=== PATIENT | male | born 1980 | race Caucasian/White ===

== ENCOUNTER 2022-08-04 16:27 | Emergency (ER) | payer OTHER, SELFPAY ==
[2022-08-04 16:35] VITALS: BP 156/98; PULSE 96; RESP 18; TEMP 36.6; O2SAT 99
--- NOTE | 2022-08-04 16:39 | DI.RAD.S_ITS ---
PROCEDURE: XR HAND LT MIN 3V INDICATIONS: fall TECHNIQUE: For views of the hand(s) acquired. COMPARISON: None. FINDINGS: Bones: Oblique fracture through the 3rd middle phalanx. Nondisplaced fracture through the ulnar base of the 4th middle phalanx. Carpal bones are normally aligned. No suspicious bony lesions. Soft tissues: No suspicious soft tissue calcifications. Soft tissue edema of the 3rd and 4th digits. IMPRESSION: 1. Oblique fracture of the 3rd middle phalanx. 2. Intra-articular fracture at the base of the 4th middle phalanx. Dictated by: Patrick Nicholson M.D. on 08/04/2022 at 16:37 Approved by: Patrick Nicholson M.D. on 08/04/2022 at 16:40
--- NOTE | 2022-08-04 18:09 | ED_ITS ---
HPI - Extremity Injury (Upper) General Chief Complaint: Extremity Injury, Upper Stated Complaint: Left Hand Injury Time Seen by Provider: 08/04/22 18:05 Source: patient Mode of arrival: Ambulatory History of Present Illness HPI narrative: 42-year-old male nonsmoker with noncontributory medical history presents with a chief complaint of pain and swelling to the 3rd 4th and 5th fingers of his left hand. Patient was on a rope swing and his fingers got caught up in the rope he now has pain in the fingers only but denies any hand wrist or elbow injury. He denies any numbness, tingling or weakness. He denies any other injuries such as head, neck or back. He has increased pain with range of motion and palpation. Related Data Home Medications Medication Instructions Recorded Confirmed No Known Home Medications 08/04/22 08/04/22 Allergies Allergy/AdvReac Type Severity Reaction Status Date / Time No Known Drug Allergies Allergy Unverified 08/04/22 16:22 Review of Systems Review of Systems Narrative: GENERAL: Denies chills, fatigue, malaise, fever, sweats. HEENT: Denies sinus pain, ear pain, sore throat, difficulty swallowing, dizziness. RESPIRATORY: Denies dyspnea, cough, wheezing, hemoptysis, sputum. CARDIOVASCULAR: Denies chest pain, palpitations, orthopnea, edema, GASTROINTESTINAL: Denies nausea, vomiting, abdominal pain, diarrhea, constipation, melena. : Denies dysuria, frequency, incontinence, hematuria, urinary retention. MUSCULOSKELETAL: See HPI SKIN: Denies rash, skin lesions, or other NEUROLOGIC: Denies weakness, headache, numbness, change in speech, confusion, seizures, incoordination. PSYCHIATRIC: No concerning psychosocial issues. 12 point review of systems is negative except for those stated above Exam Narrative Exam Narrative: GEN: AOx3 and in mild distress EYES: Pupils are equal, round, and reactive to light and accommodation. Extraoccular muscles are intact bilaterally. There is no subconjunctival hemorrhage or exudate. CHEST: Lungs are clear to auscultation bilaterally and free of wheezes, rales, or rhonchi. Heart rate is regular rhythm, there are no murmurs, clicks, rubs, or gallops. There is no chest wall tenderness. ABD: Abdomen is soft and nontender. There is no guarding or rebound. Bowel sounds are normal in all 4 quadrants. There is no mass or organomegaly. EXT: 3rd 4th and 5th fingers of left hand with moderate swelling and ecchymosis. Third finger most tender to palpation, all are closed and neurovascularly intact. No pain or limited range of motion of wrist, elbow or shoulder Full painless ROM of all extremities with no loss of sensation or strength. SKIN: Warm, pink, and dry. No erythema or rash Initial Vital Signs Initial Vital Signs: Vital Signs Temperature 97.8 F 08/04/22 16:35 Pulse Rate 96 H 08/04/22 16:35 Respiratory Rate 18 08/04/22 16:35 Blood Pressure 156/98 H 08/04/22 16:35 Pulse Oximetry 99 08/04/22 16:35 Oxygen Delivery Method 08/04/22 16:35 Procedures Orthopedic Splinting/Casting Injury #1: Side: left Upper Extremity Injury Location: finger Upper Extremity Immobilizer: aluminum form splint Post splinting neuro exam: intact Post splinting vascular exam: intact Placed by: Nursing Course Orders Ordered: ED Orders 08/04/22 16:39 XR hand LT min 3V Stat Vital Signs Vital signs: Vital Signs - 8 hr 08/04/22 16:35 Temperature 97.8 F Pulse Rate 96 H Respiratory Rate 18 Blood Pressure 156/98 H Pulse Oximetry 99 Oxygen Delivery Method Room Air Discharge Plan Departure Patient Disposition: Home Clinical Impression: Fracture of finger of left hand Instructions: DI for Fracture Activity Restrictions/Additional Instructions: *You have been diagnosed with [left middle finger fracture] *What to do: *Please continue to take your regular medications as directed. [ ] New medication prescriptions sent to your pharmacy: [ ] [ ] New medication written as a paper prescription [x] Tylenol and occasional Motrin for pain *Please follow up with [ Juarez] of [facility] in 2-3 days, call for an appointment. Let them know you were seen in the Emergency Department and that we ask that you be seen in follow up. We will electronically transmit a record of today's note if your PCP is in our system *Return to Emergency Department if you should have any new, worsening or concerning symptoms, such as [worsening pain, significant swelling, cold extremities, numbness, tingling, weakness or other bothersome symptoms Splint Care: Keep splint clean and dry. Elevated affected body part to decrease swelling. OK to use ice pack on the affected body part. Use for 15-20 minutes each time, for 5-6x per day. If you develop worsening pain, numbness, tingling, discoloration of the affected body part, loosen the splint by loosening the APRIL wrap, and either see your doctor for an urgent re-assessment, or return to the Emergency Department. Return to the Emergency Department for any new or worsening symptoms. Prescriptions: No Action No Known Home Medications Referrals: Candy Pizarro MD [Physician] - Miscellaneous,MD Torrie [Primary Care Provider] -
[2022-08-04 18:38] VITALS: BP 139/93; PULSE 82; RESP 18; O2SAT 97
== END 2022-08-04 18:39 | disposition home or self-care (01) ==
PROVIDERS: Emergency Provider Emergency Medicine
DX: S62.603A Fracture of unspecified phalanx of left middle finger, initial encounter for closed fracture (principal); X58.XXXA Exposure to other specified factors, initial encounter
CPT/HCPCS: 73130; 99281; 99283